=== PATIENT | female | born 1975 | race American Indian/Alaskan Native ===

== ENCOUNTER 2016-12-19 23:00 | Emergency (ER) | payer MEDICAID ==
[2016-12-19 23:04] VITALS: BMI 37.2
[2016-12-19 23:15] VITALS: TEMP 97.9
[2016-12-19] MEDS ORDERED: Morphine 2 mg/ml ISec IM STA (23:30)
--- NOTE | 2016-12-19 23:56 | ED PDOC ---
Arrival/HPI <Yemi Klein - Last Filed: 12/20/16 00:24> - General Historian: Patient - History of Present Illness Time/Duration: 1 week Symptom Onset: Gradual Symptom Course: Worsening Quality: Aching, Stabbing, Other (shooting) <Radha Hernandez - Last Filed: 12/20/16 00:36> - General Chief Complaint: Back Pain Time Seen by Provider: 12/19/16 23:06 - History of Present Illness Narrative History of Present Illness (Text): 12/19/16 23:49 41-year-old female presents today with low back pain radiating into the buttocks times one week. Patient denies any recent trauma or injury. Patient states she was seen at [facility] and diagnosed with sciatica. Patient states she's been taking Naprosyn and Flexeril without improvement in her symptoms. Patient describes shooting pains into the right leg. Denies numbness weakness or tingling in the extremity. Patient denies urinary symptoms. Denies abdominal pain. Denies nausea or vomiting. No chest pain or shortness of breath. No other complaints (Radha Hernandez) Past Medical History - Provider Review Nursing Documentation Reviewed: Yes - Travel History Have you recently traveled outside [place] w/in the past 3 mons?: No - Infectious Disease Hx of Infectious Diseases: None - Tetanus Immunization Tetanus Immunization: Unknown - Reproductive Menopause: No - Cardiac Hx Hypertension: Yes - Endocrine/Metabolic Hx Diabetes Mellitus Type 2: Yes - Musculoskeletal/Rheumatological Hx Back Pain: Yes (sciatica) - Psychiatric Hx Substance Use: No - Anesthesia Hx Anesthesia: No <Radha Hernandez - Last Filed: 12/20/16 00:36> Family/Social History - Physician Review Nursing Documentation Reviewed: Yes Family/Social History: Unknown Family HX Smoking Status: Light Smoker < 10 Cigarettes Daily Hx Alcohol Use: No Hx Substance Use: No <Radha Hernandez - Last Filed: 12/20/16 00:36> Allergies/Home Meds <Yemi Klein - Last Filed: 12/20/16 00:24> <Radha Hernandez - Last Filed: 12/20/16 00:36> Allergies/Adverse Reactions: Allergies cephalexin monohydrate [From Keflex] Allergy (Verified 07/30/16 18:19) RASH Home Medications: Home Meds Medication Instructions Recorded Confirmed Atorvastatin [Lipitor] 40 mg PO DAILY 06/03/16 07/30/16 Insulin Glargine, Recombina 20 unit SUBCUT BID 06/03/16 07/30/16 [Lantus] MetFORMIN [glucOPHAGE] 1,000 mg PO BID 06/03/16 07/30/16 SITagliptin [Januvia] 25 mg PO BID 06/03/16 07/30/16 Alogliptin Benzoate [Alogliptin] 25 mg PO DAILY 07/30/16 07/30/16 Empagliflozin [Jardiance] 10 mg PO DAILY 07/30/16 07/30/16 Gabapentin [Neurontin] 300 mg PO TID 07/30/16 07/30/16 Metoprolol Tartrate [Lopressor] 50 mg PO BID 07/30/16 07/30/16 Simvastatin [Simvastatin] 40 mg PO DAILY 07/30/16 07/30/16 Valsartan [Diovan] 320 mg PO DAILY 07/30/16 07/30/16 amLODIPine [Norvasc] 10 mg PO DAILY 07/30/16 07/30/16 levoFLOXacin [Levaquin] 500 mg PO DAILY 07/30/16 07/30/16 Review of Systems - Review of Systems Constitutional: absent: Fatigue, Fevers Respiratory: absent: SOB, Cough Cardiovascular: absent: Chest Pain, Palpitations Gastrointestinal: absent: Abdominal Pain, Nausea, Vomiting Genitourinary Female: absent: Dysuria, Frequency, Hematuria Musculoskeletal: Arthralgias, Back Pain. absent: Neck Pain Skin: absent: Rash, Pruritis Psychiatric: absent: Anxiety, Depression <Azoia,Radha T - Last Filed: 12/20/16 00:36> Physical Exam Vital Signs Reviewed: Yes Temperature: Afebrile Blood Pressure: Normal Pulse: Regular Respiratory Rate: Normal Appearance: Positive for: Well-Appearing, Non-Toxic, Comfortable Pain Distress: None Mental Status: Positive for: Alert and Oriented X 3 - Systems Exam Head: Present: Atraumatic Mouth: Present: Moist Mucous Membranes Neck: Present: Normal Range of Motion Respiratory/Chest: Present: Clear to Auscultation, Good Air Exchange. No: Respiratory Distress, Accessory Muscle Use Cardiovascular: Present: Regular Rate and Rhythm, Normal S1, S2. No: Murmurs Abdomen: No: Tenderness Back: Present: Normal Inspection, Other (+ right sided sciatic foramen tenderness). No: CVA Tenderness, Midline Tenderness, Paraspinal Tenderness Upper Extremity: Present: Normal Inspection Lower Extremity: Present: Normal Inspection, NORMAL PULSES, Normal ROM, Neurovascularly Intact, Capillary Refill < 2 s. No: Swelling Neurological: Present: GCS=15 Skin: Present: Warm, Dry, Normal Color. No: Rashes Psychiatric: Present: Alert, Oriented x 3 <Radha Hernandez - Last Filed: 12/20/16 00:36> Vital Signs Temp Pulse Resp BP Pulse Ox 12/19/16 23:00 97.9 F 91 H 16 156/89 H 99 Medical Decision Making <Yemi Klein - Last Filed: 12/20/16 00:24> <Rdaha Hernandez - Last Filed: 12/20/16 00:36> ED Course and Treatment: 12/20/16 00:01 Patient nontoxic well-appearing in no distress with stable vital signs. Toradol, morphine Urinalysis: + blood no leukocytes; pt currently finishing menstrual; Patient reassessment: Feeling better with medications ambulating with a steady gait. Muscle strength 5 out of 5 bilaterally. I advised to followup with the orthopedist within the next 2 days. Return if symptoms worsen persist or new symptoms develop Patient verbalizes understanding of discharge instructions and need for immediate followup. all aspects of this case were discussed the attending of record. Impression: Back pain, sciatica Continue medications as prescribed percocet one tablet every 6 hours as needed for moderate to severe pain: May cause drowsiness Followup with the orthopedist within the next 2 days Followup with primary care physician within the next 2 days Return if symptoms worsen persist or if new symptoms develop 12/20/16 00:33 (Radha Hernandez) - Lab Interpretations Lab Results: Lab Results 12/20/16 00:00: Urine Color Yellow, Urine Appearance Clear, Urine pH 6.0, Ur Specific [place] >= 1.030, Urine Protein >=300 H, Urine Glucose (UA) >=1000, Urine Ketones Negative, Urine Blood Moderate H, Urine Nitrate Negative, Urine Bilirubin Negative, Urine Urobilinogen 1.0 H, Ur Leukocyte Esterase Negative, Urine RBC Pending, Urine WBC Pending - Medication Orders Current Medication Orders: Discontinued Medications Ketorolac Tromethamine (Toradol) 60 mg IM STAT STA Stop: 12/19/16 23:31 Last Admin: 12/19/16 23:40 Dose: 60 mg Morphine Sulfate (Morphine) 2 mg IM STAT STA Stop: 12/19/16 23:31 Last Admin: 12/19/16 23:40 Dose: 2 mg - PA / JUNIOR PROGRAMMER / Resident Statement MD/DO has reviewed & agrees with the documentation as recorded. <Yemi Klein - Last Filed: 12/20/16 00:24> Disposition/Present on Arrival <Yemi Klein - Last Filed: 12/20/16 00:24> - Present on Arrival Any Indicators Present on Arrival: No History of DVT/PE: No History of Uncontrolled Diabetes: No Urinary Catheter: No History of Decub. Ulcer: No History Surgical Site Infection Following: None - Disposition Have Diagnosis and Disposition been Completed?: Yes Disposition Time: 00:34 Patient Plan: Discharge <Radha Hernandez - Last Filed: 12/20/16 00:36> - Disposition Diagnosis: Back pain Disposition: HOME/ ROUTINE Condition: GOOD Discharge Instructions (ExitCare): Back Pain (ED) Additional Instructions: Continue medications as prescribed percocet one tablet every 6 hours as needed for moderate to severe pain: May cause drowsiness Followup with the orthopedist within the next 2 days Followup with primary care physician within the next 2 days Return if symptoms worsen persist or if new symptoms develop Prescriptions: oxyCODONE/Acetaminophen [Percocet 5/325 mg Tab] 1 tab PO Q6H PRN #6 tab PRN Reason: moderate to severe pain Referrals: Hu Garcia MD [Staff Provider] - Follow up with primary Visco,Benoit Cain MD [Staff Provider] - Follow up with primary Forms: [employer] ([place]ian)
[2016-12-20 00:12] LABS: URINE BILIRUBIN NEGATIVE (NEGATIVE); URINE BLOOD MODERATE (NEGATIVE); URINE GLUCOSE (UA) >=1000 mg/dL (NEGATIVE); URINE KETONE NEGATIVE (NEGATIVE); URINE LEUKOCYTE ESTERASE NEGATIVE Leu/uL (NEGATIVE); URINE PROTEIN >=300 mg/dL (<30 mg/dL)
[2016-12-20 00:26] LABS: URINE APPEARANCE CLEAR (CLEAR); URINE COLOR YELLOW (YELLOW)
[2016-12-20 00:35] LABS: URINE WBC 0 - 2 /hpf (0-6)
[2016-12-20 00:51] VITALS: BP 145/80; PULSE 89; RESP 17; O2SAT 98
== END 2016-12-20 00:49 | disposition home or self-care (01) ==
LOC: ED 23:00
DX: M54.9 Dorsalgia, unspecified (principal); I10 Essential (primary) hypertension; Z72.0 Tobacco use
CPT/HCPCS: 81001; 96372; 99283; J1885; J2270

== ENCOUNTER 2017-02-03 19:25 | Observation (INO) | payer MEDICAID ==
[2017-02-03 19:43] VITALS: TEMP 99.3; BMI 35.9
[2017-02-03 20:37] LABS: ALB/GLOB RATIO 1.1 (1.1-1.8); ALKALINE PHOSPHATASE 125 U/L (38-126); ALT/SGPT 24 U/L (7-56); AST/SGOT 19 U/L (14-36); BILIRUBIN,TOTAL 0.6 mg/dL (0.2-1.3); BLOOD UREA NITROGEN 10 mg/dL (7-21); CALCIUM 9.6 mg/dL (8.4-10.5); CARBON DIOXIDE 26 mmol/L (21-33); CHLORIDE 98 mmol/L (98-107); GFR AFRICAN-AMERICAN > 60; POTASSIUM 3.8 mmol/L (3.6-5.0); SODIUM 132 mmol/L (132-148); TOTAL PROTEIN 7.5 g/dL (5.8-8.3)
[2017-02-03 20:38] LABS: GLUCOSE,RANDOM 451 mg/dL (70-110)
[2017-02-03 20:39] LABS: BASO # 0.02 K/mm3 (0.0-2.0); BASO % 0.2 % (0.0-3.0); EOS # 0.1 (0.0-0.7); EOS % 1.1 % (1.5-5.0); GRAN # 7.56 (1.4-6.5); GRAN % 65.8 % (50.0-68.0); HEMATOCRIT 39.1 % (36.0-48.0); LYMPH # 3.2 (1.2-3.4); LYMPH % 28.1 % (22.0-35.0); MEAN CELL VOLUME 82.1 fl (80.0-105.0); MEAN CORPUSCULAR HGB CONC 35.3 g/dl (31.0-37.0); MEAN PLATELET VOLUME 9.8 fl (7.0-11.0); MONO # 0.6 (0.1-0.6); MONO % 4.8 % (1.0-6.0); RED CELL DISTRIBUTION WIDTH 13.3 % (11.5-14.5); WHITE BLOOD COUNT 11.5 10^3/ul (4.5-11.0)
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
[2017-02-03 20:47] LABS: INR 0.93 (0.93-1.08); PARTIAL THROMBOPLASTIN TIME 31.2 Seconds (23.7-30.8)
[2017-02-03 20:48] LABS: D DIMER 0.79 mg/L FEU (0-0.50); TROPONIN I < 0.01 ng/mL
[2017-02-03] MEDS ORDERED: Sodium Chloride 0.9% 2,000 ML IV STA (21:06)
[2017-02-03] MEDS ORDERED: Morphine 4 mg/ml ISec IVP STA (22:26)
[2017-02-03 23:40] LABS: TROPONIN I < 0.01 ng/mL
[2017-02-04] MEDS ORDERED: Sodium Chloride 0.9% 1,000 ML IV STA (00:36)
[2017-02-04] MEDS ORDERED: Iodixanol 320 MG/ML 100 ML BOTTLE IV ONE (00:44)
[2017-02-04 01:02] VITALS: RESP 18
--- NOTE | 2017-02-04 01:57 | CT ---
EXAM: CT Angiography Chest With Intravenous Contrast CLINICAL HISTORY: 41 years old, female; Abnormal findings; Abnormal diagnostic tests; Elevated d-dimer; Additional info: R/O pe TECHNIQUE: Axial computed tomographic angiography images of the chest with intravenous contrast using pulmonary embolism protocol. All CT scans at this facility use one or more dose reduction techniques, viz.: automated exposure control; ma/kV adjustment per patient size (including targeted exams where dose is matched to indication; i.e. head); or iterative reconstruction technique. MIP reconstructed images were created and reviewed. Coronal and sagittal reformatted images were created and reviewed. CONTRAST: 96 mL of VISI 320 administered intravenously. COMPARISON: No relevant prior studies available. FINDINGS: Limitations: Motion artifact - mild. Pulmonary arteries: No definite pulmonary embolism. Aorta: No aneurysm. No dissection. Lungs: Minimal atelectasis. No consolidation. Pleural space: No significant effusion. No pneumothorax. Heart: No cardiomegaly. No significant pericardial effusion. Bones/joints: No acute fracture. No dislocation. Soft tissues: Unremarkable. Lymph nodes: No pathologically enlarged lymph nodes. IMPRESSION: 1. No definite CT evidence of pulmonary embolism.
[2017-02-04 02:28] VITALS: BP 156/85; PULSE 85; O2SAT 96
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
--- NOTE | 2017-02-04 16:46 | CARD ---
APPROVED REPORT EKG Measurement Heart [id number] <Conclusion> Normal sinus rhythm Poot Progression of R in V1-V4. T Inversion in I and AVL.
--- NOTE | 2017-02-04 16:58 | CARD ---
APPROVED REPORT EKG Measurement Heart [id number] ID [id number] <Conclusion> Sinus tachycardia Possible Anterior infarct, age undetermined T wave inversion in I and AVL.
== END 2017-02-04 02:08 | disposition home or self-care (01) ==
LOC: ED 19:25 → EROBSV 20:09
PROVIDERS: ADMIT Emergency Medicine; ATTEND Emergency Medicine
DX: R07.9 Chest pain, unspecified (principal)
CPT/HCPCS: 71020; 71101; 71275; 80053; 82550; 82948; 83615; 84484; 85025; 85378; 85610; 85730; 93005; 96361; 96374; 96375; 99285; G0378; J1885; J2270; J7040; Q9967

== ENCOUNTER 2017-05-21 09:50 | Emergency (ER) | payer MEDICAID ==
[2017-05-21 09:50] VITALS: BMI 35.9
[2017-05-21 10:09] VITALS: TEMP 97.9
--- NOTE | 2017-05-21 11:22 | ED PDOC ---
Arrival/HPI - General Chief Complaint: High Blood Pressure Time Seen by Provider: 05/21/17 10:39 Historian: Patient - History of Present Illness Narrative History of Present Illness (Text): 05/21/17 11:12 A 41 year old female, whose past medical history includes diabetes, hypertension , hyperlipidemia and sciatica, presents to the emergency department complaining of right leg pain for the past 2 days. Patient notes taking Flexeril and Naproxen, with no relief. She states her current symptoms feel similar to prior sciatic pain. Patient also notes high blood sugar and high blood pressure. Patient ran out of her medications 1 week ago, and due to her insurance she was unable to refill her prescriptions. Patient notes a sore throat but denies any fever, chills, nausea, vomiting, abdominal pain, urinary symptoms, chest pain, shortness of breath or any other complaints. PMD: Dr. Armando Time/Duration: Other (2 days) Symptom Course: Unchanged Quality: Other Context: Home Past Medical History - Provider Review Nursing Documentation Reviewed: Yes - Infectious Disease Hx of Infectious Diseases: None - Tetanus Immunization Tetanus Immunization: Unknown - Cardiac Hx Cardiac Disorders: Yes Hx Hypertension: Yes - Pulmonary Hx Respiratory Disorders: No - Neurological Hx Neurological Disorder: No - HEENT Hx HEENT Disorder: Yes Other/Comment: glasses - Renal Hx Renal Disorder: No - Endocrine/Metabolic Hx Endocrine Disorders: Yes Hx Diabetes Mellitus Type 2: Yes - Hematological/Oncological Hx Blood Disorders: No - Integumentary Hx Dermatological Disorder: No - Musculoskeletal/Rheumatological Hx Back Pain: Yes (sciatica) - Gastrointestinal Hx Gastrointestinal Disorders: No - Genitourinary/Gynecological Hx Genitourinary Disorders: No - Psychiatric Hx Psychophysiologic Disorder: No Hx Substance Use: No - Surgical History Other/Comment: abcess drained - Anesthesia Hx Anesthesia: No Family/Social History - Physician Review Nursing Documentation Reviewed: Yes Family/Social History: No Known Family HX Smoking Status: Light Smoker < 10 Cigarettes Daily Hx Alcohol Use: No Hx Substance Use: No Allergies/Home Meds Allergies/Adverse Reactions: Allergies cephalexin monohydrate [From Keflex] Allergy (Intermediate, Verified 05/21/17 10 :02) RASH Home Medications: Home Meds Medication Instructions Recorded Confirmed Insulin Glargine, Recombina 30 unit SQ ACHS 05/21/17 05/21/17 [Lantus] MetFORMIN [glucoPHAGE] 1,000 mg PO BID 05/21/17 05/21/17 Simvastatin [Zocor] 40 mg PO HS 05/21/17 05/21/17 Valsartan [Diovan] 0 mg PO DAILY 05/21/17 05/21/17 Review of Systems - Physician Review All systems were reviewed & negative as marked: Yes - Review of Systems Constitutional: Other (High blood sugar/pressure). absent: Fevers, Night Sweats ENT: Sore Throat Respiratory: absent: SOB Cardiovascular: absent: Chest Pain Gastrointestinal: absent: Abdominal Pain, Nausea, Vomiting Genitourinary Female: absent: Dysuria, Frequency, Hematuria, Urine Output Changes Musculoskeletal: Other (right leg pain) Physical Exam Vital Signs Reviewed: Yes Vital Signs Temp Pulse Resp BP Pulse Ox 05/21/17 15:08 76 16 149/84 97 05/21/17 12:05 70 16 177/101 H 100 05/21/17 10:06 97.9 F 97 H 18 180/94 H 96 Appearance: Positive for: Well-Appearing, Non-Toxic, Comfortable Pain Distress: None Mental Status: Positive for: Alert and Oriented X 3 Finger Stick Blood Glucose: 500 - Systems Exam Head: Present: Atraumatic, Normocephalic Pupils: Present: PERRL Extroacular Muscles: Present: EOMI Conjunctiva: Present: Normal Mouth: Present: Moist Mucous Membranes Neck: Present: Normal Range of Motion Respiratory/Chest: Present: Clear to Auscultation, Good Air Exchange. No: Respiratory Distress, Accessory Muscle Use Cardiovascular: Present: Regular Rate and Rhythm, Normal S1, S2. No: Murmurs Abdomen: Present: Normal Bowel Sounds. No: Tenderness, Distention, Peritoneal Signs Upper Extremity: Present: NORMAL PULSES. No: Cyanosis, Edema Lower Extremity: Present: NORMAL PULSES. No: Edema Neurological: Present: GCS=15, Motor Func Grossly Intact, Normal Sensory Function, Other (no focal deficits) Skin: Present: Warm, Dry Psychiatric: Present: Alert, Oriented x 3 Medical Decision Making ED Course and Treatment: 05/21/17 14:49 On re-evaluation, patient feels better and is in no acute distress. I have discussed the results and plan with the patient, who expresses understanding. Patient in agreement with plan to be discharged home. Patient is stable for discharge. Patient was instructed to follow up with physician or return if symptoms worsen or new concerning symptoms arise. - Lab Interpretations Lab Results: 05/21/17 10:11 05/21/17 10:11 Lab Results 05/21/17 14:17: POC Glucose (mg/dL) 247 H 05/21/17 11:56: POC Glucose (mg/dL) 465 H* 05/21/17 10:11: Sodium 133, Potassium 4.0, Chloride 95 L, Carbon Dioxide 26, Anion Gap 15, BUN 9, Creatinine 0.7, Est GFR ( Amer) > 60, Est GFR (Non- Af Amer) > 60, Random Glucose 571 H* D, Calcium 9.0, Total Bilirubin 0.4, AST 23 , ALT 25, Alkaline Phosphatase 140 H, Total Protein 7.4, Albumin 3.6, Globulin 3.8, Albumin/Globulin Ratio 0.9 L 05/21/17 10:11: WBC 13.1 H, RBC 4.75, Hgb 14.2, Hct 40.7, MCV 85.7 D, MCH 29.9 , MCHC 34.9, RDW 12.5, Plt Count 367, MPV 10.8, Gran % 73.6 H, Lymph % (Auto) 20.7 L, [place] % (Auto) 4.6, Eos % (Auto) 0.9 L, Baso % (Auto) 0.2, Gran # 9.65 H , Lymph # 2.7, [place] # 0.6, Eos # 0.1, Baso # 0.03 - Medication Orders Current Medication Orders: Discontinued Medications Lactated Ringer's (Lactated Ringer's) 1,000 mls @ 999 mls/hr IV .Q1H1M ADRIEL Last Admin: 05/21/17 12:03 Dose: 999 mls/hr eMAR Start Stop Document 05/21/17 12:03 HI (Rec: 05/21/17 12:03 [id number]) Intravenous Solution Start Date 05/21/17 Start Time 12:03 Insulin Human Regular (Humulin R) 10 units IV STAT STA Stop: 05/21/17 11:35 Last Admin: 05/21/17 12:03 Dose: 10 units eMAR Start Stop Document 05/21/17 12:03 HI (Rec: 05/21/17 12:04 [id number]) Intravenous Solution Start Date 12/30/17 Start Time 12:03 MAR Blood Glucose Document 05/21/17 12:03 HI (Rec: 05/21/17 12:04 HI [facility] [id number]) Blood Glucose Finger Stick Blood Glucose (70-120) 465 Ketorolac Tromethamine (Toradol) 10 mg IVP STAT STA Stop: 05/21/17 11:41 Last Admin: 05/21/17 12:03 Dose: 10 mg MAR Pain Assessment Document 05/21/17 12:03 HI (Rec: 05/21/17 12:03 HI [facility] [id number]) Pain Reassessment Is this a pain reassessment? No Sleep Is patient sleeping during reassessment? No Presence of Pain Presence of Pain Yes IVP Administration Document 05/21/17 12:03 HI (Rec: 05/21/17 12:03 HI [facility] [id number]) Charges for Administration # of IVP Administrations 1 Re-Assess: MAR Pain Assessment Document 05/21/17 13:03 HI (Rec: 05/21/17 13:23 HI [facility] [id number]) Pain Reassessment Is this a pain reassessment? Yes Sleep Is patient sleeping during reassessment? No Presence of Pain Presence of Pain No Ketorolac Tromethamine (Toradol) 10 mg IVP STAT STA Stop: 05/21/17 14:49 Last Admin: 05/21/17 15:05 Dose: 10 mg MAR Pain Assessment Document 05/21/17 15:05 HI (Rec: 05/21/17 15:05 HI [facility] [id number]) Pain Reassessment Is this a pain reassessment? Yes Presence of Pain Presence of Pain Yes IVP Administration Document 05/21/17 15:05 HI (Rec: 05/21/17 15:05 HI [facility] [id number]) Charges for Administration # of IVP Administrations 1 Losartan Potassium (Cozaar) 100 mg PO STAT STA Stop: 05/21/17 11:46 Last Admin: 05/21/17 12:03 Dose: 100 mg - Scribe Statement The provider has reviewed the documentation as recorded by the Dannibkaitlynn Hsieh Provider Scribe Attestation: All medical record entries made by the Scribe were at my direction and personally dictated by me. I have reviewed the chart and agree that the record accurately reflects my personal performance of the history, physical exam, medical decision making, and the department course for this patient. I have also personally directed, reviewed, and agree with the discharge instructions and disposition. Disposition/Present on Arrival - Present on Arrival Any Indicators Present on Arrival: No History of DVT/PE: No History of Uncontrolled Diabetes: No Urinary Catheter: No History of Decub. Ulcer: No History Surgical Site Infection Following: None - Disposition Have Diagnosis and Disposition been Completed?: Yes Diagnosis: Sciatica, Hyperglycemia Disposition: HOME/ ROUTINE Disposition Time: 14:49 Condition: IMPROVED Discharge Instructions (ExitCare): Sciatica (ED) Additional Instructions: Please follow up with your doctor on Tuesday. Return to the ER for any worsening symptoms or for any other concerns. Prescriptions: Acetaminophen with Codeine [Tylenol with Codeine #3 Tablet] 1 each PO Q4H PRN # 10 tablet PRN Reason: Pain, Moderate (4-7) Insulin Glargine, Recombina [Lantus] 30 unit SC ACHS #1000 unit MetFORMIN [glucoPHAGE] 1,000 mg PO BID #60 tab Valsartan [Diovan] 320 mg PO DAILY #30 tab Referrals: PCP,NO [Primary Care Provider] - Follow up with primary Forms: [employer] (Haitian)
[2017-05-21] MEDS ORDERED: Insulin Regular 1 UNITS/0.01 ML ML IV STA (11:34)
[2017-05-21] MEDS ORDERED: Lactated Ringer's 1,000 ML IV SCH (11:45)
[2017-05-21 11:56] LABS: BASO # 0.03 K/mm3 (0.0-2.0); BASO % 0.2 % (0.0-3.0); EOS # 0.1 (0.0-0.7); EOS % 0.9 % (1.5-5.0); GRAN # 9.65 (1.4-6.5); GRAN % 73.6 % (50.0-68.0); HEMOGLOBIN 14.2 g/dL (12.0-16.0); LYMPH # 2.7 (1.2-3.4); LYMPH % 20.7 % (22.0-35.0); MEAN CELL VOLUME 85.7 fl (80.0-105.0); MEAN CORPUSCULAR HEMOGLOBIN 29.9 pg (25.0-35.0); MEAN CORPUSCULAR HGB CONC 34.9 g/dl (31.0-37.0); MEAN PLATELET VOLUME 10.8 fl (7.0-11.0); MONO # 0.6 (0.1-0.6); MONO % 4.6 % (1.0-6.0); RBC 4.75 10^6/uL (3.5-6.1); RED CELL DISTRIBUTION WIDTH 12.5 % (11.5-14.5); WHITE BLOOD COUNT 13.1 10^3/ul (4.5-11.0)
[2017-05-21 12:07] VITALS: RESP 16
[2017-05-21 12:17] LABS: ALB/GLOB RATIO 0.9 (1.1-1.8); ALBUMIN 3.6 g/dL (3.0-4.8); ALT/SGPT 25 U/L (7-56); AST/SGOT 23 U/L (14-36); BLOOD UREA NITROGEN 9 mg/dL (7-21); GFR AFRICAN-AMERICAN > 60; GFR NON-AFRICAN AMERICAN > 60
[2017-05-21 15:08] VITALS: BP 149/84; PULSE 76; O2SAT 97
== END 2017-05-21 15:21 | disposition home or self-care (01) ==
LOC: ED 09:50
DX: M54.30 Sciatica, unspecified side (principal); E11.65 Type 2 diabetes mellitus with hyperglycemia; I10 Essential (primary) hypertension; F17.210 Nicotine dependence, cigarettes, uncomplicated
CPT/HCPCS: 80053; 82948; 85025; 96374; 96375; 96376; 99284; J1885; J7120

== ENCOUNTER 2017-10-01 04:18 | Emergency (ER) | payer MEDICAID ==
[2017-10-01 04:19] VITALS: BMI 34.7
[2017-10-01 04:29] VITALS: RESP 18; TEMP 97.8; O2SAT 100
--- NOTE | 2017-10-01 04:55 | ED PDOC ---
Arrival/HPI - General Chief Complaint: Lower Extremity Problem/Injury Time Seen by Provider: 10/01/17 04:39 Historian: Patient - History of Present Illness Narrative History of Present Illness (Text): 10/01/17 04:48 42 year old female, whose past medical history includes diabetes, hypertension, hypecholesterolemia and sciatica, presents to the emergency department complaining of recurrent sciatic pain. Patient reports left lower back pain radiating to the left buttocks to the left thigh for the past couple days. Patient is able to ambulate.No leg weakness.No change in bowel or urinary habits. Patient denies any fever, chills, chest pain, shortness of breath, nausea, vomiting, diarrhea,neck pain, headache, dizziness, or any other complaints. PMD: Dr. Armando Time/Duration: Other (2-3 days) Symptom Onset: Gradual Symptom Course: Unchanged Activities at Onset: Light Context: Home Past Medical History - Provider Review Nursing Documentation Reviewed: Yes - Infectious Disease Hx of Infectious Diseases: None - Tetanus Immunization Tetanus Immunization: Unknown - Cardiac Hx Hypertension: Yes - Pulmonary Hx Respiratory Disorders: No - Neurological Other/Comment: Sciatica - HEENT Hx HEENT Disorder: Yes Other/Comment: glasses - Renal Hx Renal Disorder: No - Endocrine/Metabolic Hx Endocrine Disorders: Yes Hx Diabetes Mellitus Type 2: Yes - Hematological/Oncological Hx Blood Disorders: No - Integumentary Hx Dermatological Disorder: No - Musculoskeletal/Rheumatological Hx Back Pain: Yes (sciatica) - Gastrointestinal Hx Gastrointestinal Disorders: No - Genitourinary/Gynecological Hx Genitourinary Disorders: No - Psychiatric Hx Psychophysiologic Disorder: No Hx Substance Use: No - Surgical History Other/Comment: abcess drained - Anesthesia Hx Anesthesia: No Hx Anesthesia Reactions: No Hx Malignant Hyperthermia: No Family/Social History - Physician Review Nursing Documentation Reviewed: Yes Family/Social History: No Known Family HX Smoking Status: Light Smoker < 10 Cigarettes Daily Hx Alcohol Use: No Hx Substance Use: No Allergies/Home Meds Allergies/Adverse Reactions: Allergies cephalexin monohydrate [From Keflex] Allergy (Intermediate, Verified 09/17/17 05 :27) RASH Home Medications: Home Meds Medication Instructions Recorded Confirmed Insulin Glargine, Recombina 30 unit SQ ACHS 05/21/17 10/01/17 [Lantus] MetFORMIN [glucoPHAGE] 1,000 mg PO BID 05/21/17 10/01/17 Simvastatin [Zocor] 40 mg PO HS 05/21/17 10/01/17 Review of Systems - Physician Review All systems were reviewed & negative as marked: Yes - Review of Systems Constitutional: absent: Fevers, Other (Chills) Respiratory: absent: SOB Cardiovascular: absent: Chest Pain Gastrointestinal: absent: Constipation, Diarrhea, Nausea Genitourinary Female: absent: Dysuria, Frequency, Hematuria Musculoskeletal: absent: Back Pain (left back pain radiating to left buttocks to left thigh), Neck Pain Neurological: absent: Headache, Dizziness Physical Exam Vital Signs Reviewed: Yes Vital Signs Temp Pulse Resp BP Pulse Ox 10/01/17 04:27 97.8 F 105 H 18 155/90 H 100 Temperature: Afebrile Blood Pressure: Hypertensive Pulse: Tachycardic Respiratory Rate: Normal Appearance: Positive for: Well-Appearing, Non-Toxic, Comfortable Pain Distress: None Mental Status: Positive for: Alert and Oriented X 3 - Systems Exam Head: Present: Atraumatic, Normocephalic Pupils: Present: PERRL Extroacular Muscles: Present: EOMI Conjunctiva: Present: Normal Mouth: Present: Moist Mucous Membranes Neck: Present: Normal Range of Motion Respiratory/Chest: Present: Clear to Auscultation, Good Air Exchange. No: Respiratory Distress, Accessory Muscle Use Cardiovascular: Present: Regular Rate and Rhythm, Normal S1, S2. No: Murmurs Abdomen: No: Tenderness, Distention, Peritoneal Signs Back: Present: Pain with Leg Raise (Some discomfort with left leg raise ), Other (tenderness over sciatic notch ). No: Midline Tenderness, Paraspinal Tenderness Upper Extremity: Present: Normal Inspection, Normal ROM. No: Cyanosis, Edema Lower Extremity: Present: Normal Inspection, Normal ROM, Neurovascularly Intact. No: Edema Neurological: Present: GCS=15, CN II-XII Intact, Speech Normal, Motor Func Grossly Intact, Normal Sensory Function Skin: Present: Warm, Dry, Normal Color. No: Rashes Psychiatric: Present: Alert, Oriented x 3, Normal Insight, Normal Concentration Medical Decision Making ED Course and Treatment: 10/01/17 04:59 Impression: 42 year old female presents complaining of recurrent sciatic pain complaining of left lower back pain radiating to the left buttocks to the left thigh for the past couple days Plan: -- Flexeril -- Toradol -- Reassess and disposition Prior Visits: Notes and results from previous visits were reviewed. Patient was last seen in the emergency department on 05/21/17 presents complaining of right leg pain for the past 2 days. Similar to sciatic pain. Patient was discharged. Progress Notes: - Medication Orders Current Medication Orders: Discontinued Medications Cyclobenzaprine HCl (Flexeril) 10 mg PO ONCE ONE Stop: 10/01/17 04:44 Last Admin: 10/01/17 05:02 Dose: 10 mg Ketorolac Tromethamine (Toradol) 60 mg IM ONCE ONE Stop: 10/01/17 04:44 Last Admin: 10/01/17 05:02 Dose: 60 mg MAR Pain Assessment Document 10/01/17 05:02 AD (Rec: 10/01/17 05:03 AD [id number]) Pain Reassessment Is this a pain reassessment? No Presence of Pain Presence of Pain Yes Pain Scale Used Pain Scale Used Numeric Location Left, Right or Bilateral Bilateral Pain Location Body Site Leg Description Description Constant Intensity of Pain at present 8 Pain Behavior Moaning Facial Grimacing IM Administration Charges Document 10/01/17 05:02 AD (Rec: 10/01/17 05:03 AD [id number]) Injection Site MAR Injection Site Left Gluteus [place] Charges for Administration # of IM Administrations 1 - Scribe Statement The provider has reviewed the documentation as recorded by the Scribe Nick May Provider Scribe Attestation: All medical record entries made by the Scribe were at my direction and personally dictated by me. I have reviewed the chart and agree that the record accurately reflects my personal performance of the history, physical exam, medical decision making, and the department course for this patient. I have also personally directed, reviewed, and agree with the discharge instructions and disposition. Disposition/Present on Arrival - Present on Arrival Any Indicators Present on Arrival: No History of DVT/PE: No History of Uncontrolled Diabetes: No Urinary Catheter: No History of Decub. Ulcer: No History Surgical Site Infection Following: None - Disposition Have Diagnosis and Disposition been Completed?: Yes Diagnosis: Sciatica Disposition: HOME/ ROUTINE Disposition Time: 06:25 Patient Plan: Discharge Condition: GOOD Discharge Instructions (ExitCare): Sciatica (DC) Additional Instructions: Take meds as prescribed/follow up with your doctor this week Prescriptions: Cyclobenzaprine [Cyclobenzaprine HCl] 10 mg PO TID PRN #15 tab PRN Reason: Muscle Spasm oxyCODONE/Acetaminophen [Percocet 5/325 mg Tab] 1 ea PO Q6 PRN #16 tab PRN Reason: Pain, Moderate (4-7) Referrals: Efra Armando MD [Primary Care Provider] - Follow up with primary Forms: [employer] (Al[place]ian)
[2017-10-01 06:38] VITALS: BP 145/89; PULSE 98
== END 2017-10-01 06:30 | disposition home or self-care (01) ==
LOC: ED 04:18
DX: M54.30 Sciatica, unspecified side (principal); E11.9 Type 2 diabetes mellitus without complications; I10 Essential (primary) hypertension; E78.5 Hyperlipidemia, unspecified; F17.210 Nicotine dependence, cigarettes, uncomplicated
CPT/HCPCS: 96372; 99284; J1885